=== PATIENT | male | born 1965 | race Caucasian/White ===

== ENCOUNTER → 2019-09-05 | Emergency (ER) | payer OTHER ==
[~2019-09-05] VITALS: Ht 182.9 cm; Wt 103.0 kg
[~2019-09-05] MED LIST: IBUPROFEN 800 MG TAB PO ONE
[2019-09-05 20:04] VITALS: BP 129/97
== END | disposition home or self-care (01) ==
LOC: ER 16:30
DX: S82.892A Other fracture of left lower leg, initial encounter for closed fracture (principal); Z88.8 Allergy status to other drugs, medicaments and biological substances; W01.0XXA Fall on same level from slipping, tripping and stumbling without subsequent striking against object, initial encounter; Y93.89 Activity, other specified; Y92.89 Other specified places as the place of occurrence of the external cause; Y99.8 Other external cause status
CPT/HCPCS: 29515; 73610; 73700